=== PATIENT | female | born 1985 | race Caucasian/White ===

== ENCOUNTER 2016-11-01 09:31 | Outpatient (CLI) | payer BC | END 2016-11-01 09:32 | disposition home or self-care (01) | DX: E03.9 Hypothyroidism, unspecified (principal) ==

== ENCOUNTER 2016-11-21 08:00 | Outpatient (CLI) | payer BC | END 2016-11-21 08:01 | disposition home or self-care (01) | LOC: LAB.R 08:00 | PROVIDERS: ATTEND Obstetrics & Gynecology | DX: Z36 Encounter for antenatal screening of mother (principal) | CPT/HCPCS: 87797 ==

== ENCOUNTER 2016-12-11 04:49 | Inpatient (IN) | payer BC ==
[2016-12-11] MEDS ORDERED: ONDANSETRON 4 MG/2 ML VIAL IVP PRN ×2 (05:29→14:00)
[2016-12-11] MEDS ORDERED: fentaNYL 100 MCG/2 ML VIAL IVP PRN (05:29)
[2016-12-11] MEDS ORDERED: PENICILLIN G POTASSIUM 5,000,000 UNIT in SODIUM CHLORIDE 0.9% MINIBAG 100 ML IV ONE (05:29)
[2016-12-11] MEDS ORDERED: SODIUM CHLORIDE FLUSH 0.9% 10 ML SYRINGE IVP ONE ×3 (05:50→22:27)
[2016-12-11] MEDS ORDERED: LACTATED RINGERS 1,000 ML IV SCH (06:00)
[2016-12-11] MEDS ORDERED: LIDOCAINE 1% 50 ML MDV ONE (07:15)
[2016-12-11] MEDS ORDERED: OXYTOCIN/LACTATED RINGERS 250 ML IV ONE (07:15)
[2016-12-11] MEDS: PENICILLIN G POTASSIUM 2,500,000 UNIT in SODIUM CHLORIDE 0.9% 100ML 100 ML IV SCH ×2 (10:24→13:57)
[2016-12-11] MEDS ORDERED: OXYTOCIN/LACTATED RINGERS 250 ML IV SCH (11:00)
[2016-12-11] MEDS ORDERED: SUFENTA/BUPIV 0.4 MCG/0.0625% 150 ML EP ONE (13:48)
[2016-12-11] MEDS ORDERED: SUFENTA/BUPIV 0.4 MCG/0.0625% EPIDURAL 150 ML EP PRN (14:00)
[2016-12-11] MEDS ORDERED: diphenhydrAMINE INJ 50 MG/ML VIAL IVP PRN ×2 (14:00→16:10)
[2016-12-11] MEDS ORDERED: ePHEDrine 50 MG/ML AMP IVP PRN (14:00)
[2016-12-11] MEDS ORDERED: LACTATED RINGERS 500 ML IV ONE (14:00)
[2016-12-11] MEDS ORDERED: NALOXONE 0.4 MG/ML VIAL IVP PRN (14:00)
[2016-12-11] MEDS ORDERED: METOCLOPRAMIDE 10 MG/2 ML VIAL IVP PRN (14:00)
[2016-12-11] MEDS ORDERED: NALBUPHINE 20 MG/ML AMP IVP PRN (14:00)
[2016-12-11] MEDS ORDERED: CITRIC ACID/SODIUM CITRATE 15 ML UDC PO ONE (14:58)
[2016-12-11] MEDS ORDERED: LACTATED RINGERS 1,000 ML IV ONE (15:23)
[2016-12-11] MEDS ORDERED: LIDOCAINE MPF 2%-EPI 1:200000 20 ML VIAL SUBQ ONE (15:30)
[2016-12-11] MEDS ORDERED: MORPHINE PF 5 MG/10 ML AMP EP ONE (15:30)
[2016-12-11] MEDS ORDERED: ONDANSETRON 4 MG/2 ML VIAL IVP ONE (15:30)
[2016-12-11] MEDS ORDERED: fentaNYL 100 MCG/2 ML VIAL IVP ONE (15:30)
[2016-12-11] MEDS ORDERED: SODIUM BICARBONATE 8.4% 50 MEQ/50 ML VIAL IV ONE (15:30)
[2016-12-11] MEDS ORDERED: OXYTOCIN 10 UNIT/ML VIAL IV ONE (15:30)
[2016-12-11] MEDS ORDERED: oxyCOD/ACETAMIN 5 MG/325 MG TABLET PO PRN (16:10)
[2016-12-11] MEDS: KETOROLAC 30 MG/ML VIAL IV SCH ×2 (16:26→22:35)
[2016-12-11] MEDS: ACETAMINOPHEN 500 MG TABLET PO SCH (17:59)
[2016-12-11] MEDS: LACTATED RINGERS 1,000 ML IV SCH (23:24)
[2016-12-12] MEDS: PENICILLIN G POTASSIUM 2,500,000 UNIT in SODIUM CHLORIDE 0.9% 100ML 100 ML IV SCH (00:24)
[2016-12-12] MEDS: IBUPROFEN 600 MG TABLET PO SCH ×3 (00:29→18:59)
[2016-12-12] MEDS: DOCUSATE SODIUM 100 MG CAPSULE PO SCH ×3 (00:31→21:19)
[2016-12-12] MEDS: SIMETHICONE CHEW 80 MG TABLET PO SCH ×3 (00:32→21:19)
[2016-12-12] MEDS: KETOROLAC 30 MG/ML VIAL IV SCH ×2 (04:34→13:12)
[2016-12-12] MEDS: LACTATED RINGERS 1,000 ML IV SCH (06:46)
[2016-12-12] MEDS ORDERED: LEVOTHYROXINE 88 MCG TABLET PO SCH (07:00)
[2016-12-12] MEDS: ACETAMINOPHEN 500 MG TABLET PO SCH ×2 (09:50→18:11)
[2016-12-12] MEDS ORDERED: KETOROLAC 30 MG/ML VIAL ONE (13:09)
[2016-12-12] MEDS: LEVOTHYROXINE 88 MCG TABLET PO SCH (13:13)
[2016-12-12] MEDS: FEXOFENADINE 60 MG TABLET PO SCH (19:00)
[2016-12-12] MEDS ORDERED: CETIRIZINE 10 MG TABLET PO SCH (19:00)
[2016-12-13] MEDS: IBUPROFEN 600 MG TABLET PO SCH ×4 (00:31→18:31)
[2016-12-13] MEDS: ACETAMINOPHEN 500 MG TABLET PO SCH ×3 (01:43→17:10)
[2016-12-13] MEDS: SIMETHICONE CHEW 80 MG TABLET PO SCH ×4 (04:35→23:10)
[2016-12-13] MEDS: LEVOTHYROXINE 88 MCG TABLET PO SCH (06:49)
[2016-12-13] MEDS: DOCUSATE SODIUM 100 MG CAPSULE PO SCH ×2 (09:12→23:10)
[2016-12-13] MEDS: FEXOFENADINE 60 MG TABLET PO SCH (18:31)
[2016-12-14] MEDS: IBUPROFEN 600 MG TABLET PO SCH ×2 (02:13→09:13)
[2016-12-14] MEDS: ACETAMINOPHEN 500 MG TABLET PO SCH ×2 (02:14→09:13)
[2016-12-14] MEDS: LEVOTHYROXINE 88 MCG TABLET PO SCH (06:56)
[2016-12-14] MEDS: SIMETHICONE CHEW 80 MG TABLET PO SCH (09:13)
[2016-12-14] MEDS: DOCUSATE SODIUM 100 MG CAPSULE PO SCH (09:14)
== END 2016-12-14 14:30 | disposition home or self-care (01) | DRG 766 ==
PROC: 10D00Z1 Extraction of Products of Conception, Low, Open Approach (ICD-10-PCS; principal; 2016-12-11 15:00)
DX: O64.0XX0 Obstructed labor due to incomplete rotation of fetal head, not applicable or unspecified (principal); O63.1 Prolonged second stage (of labor); O76 Abnormality in fetal heart rate and rhythm complicating labor and delivery; O75.81 Maternal exhaustion complicating labor and delivery; O99.824 Streptococcus B carrier state complicating childbirth; O99.284 Endocrine, nutritional and metabolic diseases complicating childbirth; E03.9 Hypothyroidism, unspecified; Z3A.39 39 weeks gestation of pregnancy; Z37.0 Single live birth

== ENCOUNTER 2017-01-16 12:28 | Outpatient (CLI) | payer BC | END 2017-01-16 12:29 | disposition home or self-care (01) | DX: Z13.0 Encounter for screening for diseases of the blood and blood-forming organs and certain disorders involving the immune mechanism (principal); Z13.29 Encounter for screening for other suspected endocrine disorder ==

== ENCOUNTER 2017-01-21 13:07 | Outpatient (CLI) | payer BC | END 2017-01-21 13:08 | disposition home or self-care (01) | DX: Z13.29 Encounter for screening for other suspected endocrine disorder (principal) ==

== ENCOUNTER 2019-12-27 15:55 | Outpatient (CLI) | payer BC | END 2019-12-27 15:56 | disposition home or self-care (01) | LOC: COV 15:55 | PROVIDERS: ATTEND Family Medicine | DX: R05 Cough (principal); R50.9 Fever, unspecified | CPT/HCPCS: 81599 ==